=== PATIENT | female | born 1955 | race Caucasian/White ===

== ENCOUNTER 2017-08-20 06:03 | Day surgery (SDC) | payer MEDICARE, BC ==
[~2017-08-20] VITALS: Ht 162.6 cm; Wt 131.1 kg
[~2017-08-20 06:03] MED LIST: AMLO5; ERGO400; GABA300 PO; HYDCHL12.5; HYDCHL25 PO; IBUP800 PO; LATA.005SO; LISI20; LISI5 PO; MAGOXI400; META800 PO; NAPR550 PO; OMEP20ER PO; OXYACE5T PO; OXYC15ER; OXYC40ER; OXYC5 PO; Omeprazole20 M1; RXMETA800 PO; RXNAPNA550 PO; RXTRAM50 PO; TIMO.5OPSO; TRAM50 PO
[2017-10-22] MEDS ORDERED: HYDCHL12.5 (08:30)
[2018-07-03] MEDS ORDERED: Prinivil10 MG PO (11:23)
[2018-07-03] MEDS ORDERED: Hydrochloroth12.5 MG PO (11:25)
[2018-07-03] MEDS ORDERED: AMLO5 PO (11:25)
[2018-07-03] MEDS ORDERED: ESOM20 (11:27)
[2018-07-03] MEDS ORDERED: Super Calcium600 MG PO (11:29)
[2018-07-03] MEDS ORDERED: CHOL10002 PO (11:30)
[2018-07-03] MEDS ORDERED: Magnesium500 M1 PO (11:30)
== END 2017-08-20 08:14 | disposition home or self-care (01) ==
LOC: ORSCSDS 06:03
PROVIDERS: Ophthalmology
PROC: 08RJ3JZ Replacement of Right Lens with Synthetic Substitute, Percutaneous Approach (ICD-10-PCS; principal; 2017-08-20 07:30)
DX: H25.11 Age-related nuclear cataract, right eye (principal); I10 Essential (primary) hypertension; Z79.899 Other long term (current) drug therapy; F17.210 Nicotine dependence, cigarettes, uncomplicated
CPT/HCPCS: J2250; J3010; J3301; V2632

== ENCOUNTER 2017-10-29 06:30 | Day surgery (SDC) | payer MEDICARE, BC ==
[~2017-10-29] VITALS: Ht 162.6 cm; Wt 128.6 kg
[2018-07-03] MEDS ORDERED: Prinivil10 MG PO (11:23)
[2018-07-03] MEDS ORDERED: Hydrochloroth12.5 MG PO (11:25)
[2018-07-03] MEDS ORDERED: AMLO5 PO (11:25)
[2018-07-03] MEDS ORDERED: ESOM20 (11:27)
[2018-07-03] MEDS ORDERED: Super Calcium600 MG PO (11:29)
[2018-07-03] MEDS ORDERED: CHOL10002 PO (11:30)
[2018-07-03] MEDS ORDERED: Magnesium500 M1 PO (11:30)
== END 2017-10-29 08:17 | disposition home or self-care (01) ==
LOC: ORSCSDS 06:30
PROVIDERS: Ophthalmology
PROC: 08RK3JZ Replacement of Left Lens with Synthetic Substitute, Percutaneous Approach (ICD-10-PCS; principal; 2017-10-29 07:30)
DX: H25.12 Age-related nuclear cataract, left eye (principal); I10 Essential (primary) hypertension; K21.9 Gastro-esophageal reflux disease without esophagitis; E66.01 Morbid (severe) obesity due to excess calories; Z68.42 Body mass index [BMI] 45.0-49.9, adult; Z79.899 Other long term (current) drug therapy
CPT/HCPCS: J2250; J3010; J3301; J7040; V2632

== ENCOUNTER 2018-09-02 11:21 | Day surgery (SDC) | payer MEDICARE, BC ==
[~2018-09-02] VITALS: Ht 162.6 cm; Wt 134.7 kg
[~2018-09-02 11:21] MED LIST changes: +AMLO5 PO; +CHOL10002 PO; +ESOM20; +Hydrochloroth12.5 MG PO; +Magnesium500 M1 PO; +Prinivil10 MG PO; +Super Calcium600 MG PO
[2018-09-02] MEDS ORDERED: OXYC15ER PO (11:48)
--- NOTE | 2018-09-02 11:59 | NUR ---
09/02/18 1159 Ankita Carrizales V PT RESTING IN BED, SIDE RAILS IN PLACE, CALL LIGHT WITHIN REACH. PT'S BP HIGH BUT OTHER VSS. PT TEACHING COMPLETED. PT DENIES PAIN AND DISCOMFORT AT THIS TIME.
== END 2018-09-02 14:12 | disposition home or self-care (01) ==
LOC: ORSCSDS 11:21
PROVIDERS: Ophthalmology
PROC: 080PXZZ Alteration of Left Upper Eyelid, External Approach (ICD-10-PCS; principal; 2018-09-02 13:00)
PROC: 080NXZZ Alteration of Right Upper Eyelid, External Approach (ICD-10-PCS; principal; 2018-09-02 13:00)
DX: H02.831 Dermatochalasis of right upper eyelid (principal); H02.834 Dermatochalasis of left upper eyelid; I10 Essential (primary) hypertension; E66.01 Morbid (severe) obesity due to excess calories; Z68.43 Body mass index [BMI] 50.0-59.9, adult; K21.9 Gastro-esophageal reflux disease without esophagitis; Z79.899 Other long term (current) drug therapy
CPT/HCPCS: J2250; J7120

== ENCOUNTER → 2019-10-22 | Outpatient (CLI) | payer MEDICARE, BC ==
[~2019-10-22] MED LIST changes: +OXYC15ER PO
[2019-10-22 15:49] LABS: Source, Urine Clean Catch
[2019-10-22 17:26] LABS: Bilirubin, Urine Neg (Neg); Blood, Urine 2+ (Neg); Glucose Qualitative, Urine Neg (Neg); Ketones, Urine Neg (Neg); Leukocyte Esterase, Urine 1+ (Neg); Nitrite, Urine Neg (Neg); Protein, Urine Neg (Neg); Urobilinogen, Urine 1+ (Normal)
[2019-10-22 17:40] LABS: Appearance, Urine Clear (Clear); Bacteria Mod /hpf; Color, Urine Yellow (P-Yellow); Squamous Epithelial Cells Mod /hpf (Few); White Blood Cells, Urine 0-2 /hpf (0-5)
== END | disposition home or self-care (01) ==
LOC: OLS 15:48 → LAB SHORT 15:48
PROVIDERS: Physical Medicine & Rehabilitation Pain Medicine
DX: M54.5 Low back pain (principal)
CPT/HCPCS: 81001; 87086

== ENCOUNTER → 2024-09-06 | Outpatient (CLI) | payer MEDICARE ==
[2024-09-07 17:28] LABS: Influenza A, PCR NEGATIVE (NEGATIVE); Influenza B, PCR NEGATIVE (NEGATIVE); Resp Syncytial Virus, PCR NEGATIVE (NEGATIVE); SARS-Cov-2 (COVID-19) PCR, MMC NEGATIVE (NEGATIVE)
== END ==
LOC: LAB 16:00 → LAB SHORT 16:00
PROVIDERS: Physician Assistant
DX: J02.9 Acute pharyngitis, unspecified (principal); R05.9 Cough, unspecified; R50.9 Fever, unspecified
CPT/HCPCS: 0241U

== ENCOUNTER → 2025-05-27 | Outpatient (CLI) | payer MEDICARE | LOC: LAB 10:17 → LAB SHORT 10:17 | DX: N39.0 Urinary tract infection, site not specified (principal) | CPT/HCPCS: 87086 ==

== ENCOUNTER → 2025-06-20 | Outpatient (CLI) | payer MEDICARE | END | disposition home or self-care (01) | LOC: LAB SHORT 15:00 → LAB 15:00 → LAB SHORT 06-21 16:05 | DX: N39.0 Urinary tract infection, site not specified (principal) | CPT/HCPCS: 87086 ==

== ENCOUNTER → 2025-06-30 | Outpatient (CLI) | payer MEDICARE ==
[2025-07-01 16:01] LABS: Source, Urine Voided
[2025-07-01 17:55] LABS: Bilirubin, Urine Neg (Neg); Color, Urine Yellow (P-Yellow); Glucose Qualitative, Urine Neg (Neg); Ketones, Urine Neg (Neg); Leukocyte Esterase, Urine 3+ (Neg); Protein, Urine 2+ (Neg); Specific Gravity, Urine 1.015 (1.003-1.022); Urobilinogen, Urine NORM (Normal)
[2025-07-01 18:14] LABS: Yeast/Fungi Urine Few /hpf
== END ==
LOC: LAB 17:30 → LAB SHORT 17:30
PROVIDERS: Nurse Practitioner Family
DX: N39.0 Urinary tract infection, site not specified (principal)
CPT/HCPCS: 81001; 87086